=== PATIENT | female | born 1990 | race Asian ===

== ENCOUNTER 2017-01-07 15:00 | Emergency (ER) | payer BC ==
[~2017-01-07] VITALS: Ht 172.7 cm; Wt 72.7 kg
[2017-01-07 15:02] VITALS: BP 135/86; TEMP 99
[2017-01-07] MEDS ORDERED: PREDNISONE20 MG PO (15:42)
[2017-01-07] MEDS ORDERED: CETRAXAL0.2% OT (15:42)
[2017-01-07 15:53] VITALS: PULSE 78
== END 2017-01-07 15:53 | disposition home or self-care (01) ==
LOC: COL.ER 15:00
DX: H69.92 Unspecified Eustachian tube disorder, left ear (principal)

== ENCOUNTER 2018-06-02 01:56 | Emergency (ER) | payer OTHER ==
[~2018-06-02] VITALS: Ht 172.7 cm; Wt 75.0 kg
[~2018-06-02 01:56] MED LIST: CETRAXAL0.2% OT; PREDNISONE20 MG PO
[2018-06-02 02:08] VITALS: TEMP 98.2
[2018-06-02] MEDS ORDERED: OMEGA-3 1000 MG1 CAP PO (04:57)
[2018-06-02 05:09] LABS: BASO % 0.4 % (0.0-2.0); EOS # 0.1 (0.0-0.7); EOS % 0.7 % (0-4.0); GRAN # 3.2 (1.4-6.5); GRAN % 46.8 % (42.2-75.2); LYMPH % 44.1 % (20.0-51.0); MEAN CELL VOLUME 93 fl (80.0-100.0); MEAN CORPUSCULAR HEMOGLOBIN 33 pg (27.0-31.0); MEAN CORPUSCULAR HGB CONC 35 g/dl (33.0-37.0); MEAN PLATELET VOLUME 10.2 fl (7.4-10.4); MONO # 0.5 (0.1-0.6); MONO % 7.7 % (1.7-9.3); PLATELET COUNT 259 K/mm3 (130-400); RED BLOOD COUNT 3.98 M/mm3 (4.10-5.30); REDCELL DISTRIBUTION WIDTH-CV 11.5 % (11.5-14.5)
[2018-06-02 05:28] LABS: ALBUMIN 4.4 gm/dL (3.5-5.0); BILIRUBIN,TOTAL 0.3 mg/dL (0.0-1.0); CREATININE, serum 0.55 mg/dL (0.52-1.25); POTASSIUM 3.8 mmol/L (3.4-5.0); TOTAL PROTEIN 7.9 gm/dL (6.4-8.2)
[2018-06-02 06:23] VITALS: BP 119/81; PULSE 60
== END 2018-06-02 06:24 | disposition home or self-care (01) ==
LOC: COL.ER 01:56
PROVIDERS: Emergency Medicine
DX: K29.70 Gastritis, unspecified, without bleeding (principal); E78.5 Hyperlipidemia, unspecified